=== PATIENT | male | born 1995 | race Caucasian/White ===

== ENCOUNTER 2018-07-08 10:48 | Emergency (ER) | payer OTHER ==
[2018-07-08 12:18] LABS: Basophils % (A) 0 %; Eosinophils # (A) 0.1 k/uL (0-0.7); Eosinophils % (A) 1 %; HCT 43.6 % (39.0-53.0); Lymphocytes # (A) 1.9 k/uL (1.0-4.8); Lymphocytes % (A) 19 %; MCH 29.8 pg (25.0-35.0); MCHC 34.5 g/dL (31.0-37.0); MCV 86.3 fL (80.0-100.0); Mean Platelet Volume 7.1; Monocytes # (A) 0.6 k/uL (0-1.0); Monocytes % (A) 5 %; Neutrophils # (A) 7.5 k/uL (1.3-7.7); Neutrophils % (A) 73 %; Platelet Count 185 k/uL (150-450); RBC 5.05 m/uL (4.30-5.90); WBC 10.4 k/uL (3.8-10.6)
--- NOTE | 2018-07-08 12:26 | XR ---
EXAMINATION TYPE: XR chest 2V DATE OF EXAM: 07/08/2018 COMPARISON: 06/01/2001 INDICATION: Sore throat, rash TECHNIQUE: Frontal and lateral views of the chest are obtained. FINDINGS: The heart size is normal. The pulmonary vasculature is normal. The lungs are clear. Subglottic airway is normal. IMPRESSION: 1. No acute pulmonary process.
[2018-07-08 12:31] LABS: ALT 30 U/L (21-72); AST 26 U/L (17-59); Albumin 3.9 g/dL (3.5-5.0); Alkaline Phosphatase 66 U/L (38-126); Anion Gap 7 mmol/L; Blood Urea Nitrogen 10 mg/dL (9-20); Calcium 9.6 mg/dL (8.4-10.2); Carbon Dioxide 27 mmol/L (22-30); Chloride 105 mmol/L (98-107); Glucose 97 mg/dL (74-99); Potassium 4.4 mmol/L (3.5-5.1); Sodium 139 mmol/L (137-145); Total Bilirubin 0.8 mg/dL (0.2-1.3); Total Protein 6.8 g/dL (6.3-8.2)
--- NOTE | 2018-07-08 12:50 | ED ---
ENT HPI - General Chief complaint: ENT Stated complaint: sorethroat, rash on abd Time Seen by Provider: 07/08/18 11:12 Source: patient, family Mode of arrival: ambulatory Limitations: no limitations - History of Present Illness Initial comments: This is a 22-year-old male fully vaccinated, who denies any past medical history presenting today for chief complaint of rash x 6 days and sore throat x 3 days. Patient states that he began experiencing a rash on his trunk 6 days ago, he states is mostly on the lateral sides. Patient denies any itchiness or pain, involvement of the hands/feet, penile lesions. Patient states is erythematous, and a random pattern. Patient states 3 days later he began experiencing throat pain with swallowing. Patient has a difficulty breathing or difficulty swallowing. Patient states he did notice inflamed tonsil, he states this happens occasionally. Patient also admits to congestion with clear rhinorrhea. As well as an occasional cough. Patient does admit to fever and chills. Patient denies any diarrhea, chest pain, shortness of breath, dyspnea on exertion, urinary changes, nausea, vomiting, dysuria, involvement of the hands or feet, recent travel or any other associated symptoms. Patient appears well upon arrival. Remainder of ROS (-), patient denies any recent shortness of breath, chest pain, back pain, numbness or tingling, dysuria or hematuria, constipation or diarrhea, headaches or visual changes, or any other complaints. VS WNL, elevated BP reading upon arrival will repeat. Afebrile. - Related Data Allergies Allergy/AdvReac Type Severity Reaction Status Date / Time No Known Allergies Allergy Verified 07/08/18 10:57 Review of Systems ROS Statement: Those systems with pertinent positive or pertinent negative responses have been documented in the HPI. ROS Other: All systems not noted in ROS Statement are negative. Past Medical History Past Medical History: No Reported History History of Any Multi-Drug Resistant Organisms: None Reported Past Surgical History: No Surgical Hx Reported Past Psychological History: No Psychological Hx Reported Smoking Status: Never smoker Past Alcohol Use History: None Reported Past Drug Use History: None Reported General Exam - General Exam Comments Initial Comments: General: The patient is awake and alert, in no distress, and does not appear acutely ill. Eye: Pupils are equal, round and reactive to light, extra-ocular movements are intact. No nystagmus. There is normal conjunctiva bilaterally. No signs of icterus. Ears, nose, mouth and throat: There are moist mucous membranes and no oral lesions. Oropharynx is mildly erythematous, there is no tonsillar enlargement exudates or lesions. There is no tonsillar crypts. Uvula is midline. No evidence of peritonsillar abscess. Tympanic membranes are pearly, light and malleus present no erythema bulging retractions. Extraocular canals within normal limits bilaterally. No pain to palpation of the mastoid. No significant sinus tenderness to palpation. Clear rhinorrhea noted on exam. Post nasal drip. Neck: The neck is supple, there is no tenderness or JVD. No anterior cervical adenopathy Cardiovascular: There is a regular rate and rhythm. No murmur, rub or gallop is appreciated. Respiratory: Lungs are clear to auscultation, respirations are non-labored, breath sounds are equal. No wheezes, stridor, rales, or rhonchi. Gastrointestinal: Soft, non-distended, non-tender abdomen without masses or organomegaly noted. There is no rebound or guarding present. No CVA tenderness. Bowel sounds are unremarkable. Musculoskeletal: Normal ROM, no tenderness. Strength 5/5. Sensation intact. Radial pulses equal bilaterally 2+. Neurological: A&O x 3. CN II-XII intact, There are no obvious motor or sensory deficits. Coordination appears grossly intact. Speech is normal. Skin: Skin is warm. Erythematous macules and management distribution of various size mostly less than 1 cm some confluent present on the trunk, no involvement of the neck lower extremities upper extremities face and hands or feet. Blanchable. Psychiatric: Cooperative, appropriate mood & affect, normal judgment. Limitations: no limitations Course Vital Signs 07/08/18 07/08/18 10:55 13:06 Temperature 98.2 F 98.0 F Pulse Rate 86 87 Respiratory 20 18 Rate Blood Pressure 129/91 128/78 O2 Sat by Pulse 99 98 Oximetry Medical Decision Making - Medical Decision Making Well-appearing 22-year-old male. Laboratory findings unremarkable. CXR (-). Rapid strep (-). Heterophile. Patient's physical exam findings concerning for a viral pharyngitis. At this time is unclear if the rash and the pharyngitis symptoms are related. Rash does appear to be consistent with a pityriasis rosea distribution and characteristics area and it does not appear to be a life- threatening or concerning rash. Most likely viral nature. Does not appear to be ALLERGIC reaction or contact dermatitis. At this time do feel patient is stable for discharge with dramatic treatment for sore throat. Patient verbalized understanding of plan. Patient states he'll take ibuprofen in over- the-counter lozenges for symptom treatment. Patient is agreeable discharge, stating he feels comfortable going home. No further questions at this time. Patient was given Versed return parameters for any worsening or change in symptoms. Patient discharged in stable condition appearing well. Pt is to f/u with primary care provider in the next 1-2 days. Pt aware of discharge instructions, denies questions. Case discussed with Dr. Jerez who reviewed all imaging and laboratory studies prior to discharge. - Lab Data Result diagrams: 07/08/18 11:55 07/08/18 11:55 Lab Results 07/08/18 07/08/18 07/08/18 Range/Units 11:45 11:45 11:55 WBC (3.8-10.6) k/uL RBC (4.30-5.90) m/uL Hgb (13.0-17.5) gm/dL Hct (39.0-53.0) % MCV (80.0-100.0) fL MCH (25.0-35.0) pg MCHC (31.0-37.0) g/dL RDW (11.5-15.5) % Plt Count (150-450) k/uL Neutrophils % % Lymphocytes % % Monocytes % % Eosinophils % % Basophils % % Neutrophils # (1.3-7.7) k/uL Lymphocytes # (1.0-4.8) k/uL Monocytes # (0-1.0) k/uL Eosinophils # (0-0.7) k/uL Basophils # (0-0.2) k/uL Sodium (137-145) mmol/L Potassium (3.5-5.1) mmol/L Chloride (98-107) mmol/L Carbon Dioxide (22-30) mmol/L Anion Gap mmol/L BUN (9-20) mg/dL Creatinine (0.66-1.25) mg/dL Est GFR (CKD-EPI)AfAm (>60 ml/min/1.73 sqM) Est GFR (CKD-EPI)NonAf (>60 ml/min/1.73 sqM) Glucose (74-99) mg/dL Calcium (8.4-10.2) mg/dL Total Bilirubin (0.2-1.3) mg/dL AST (17-59) U/L ALT (21-72) U/L Alkaline Phosphatase (38-126) U/L Total Protein (6.3-8.2) g/dL Albumin (3.5-5.0) g/dL Heterophile Antibody Negative (Negative) Influenza Type A RNA Not Detected (Not Detectd) Influenza Type B (PCR) Not Detected (Not Detectd) Group A Strep Rapid Negative (Negative) 07/08/18 07/08/18 Range/Units 11:55 11:55 WBC 10.4 (3.8-10.6) k/uL RBC 5.05 (4.30-5.90) m/uL Hgb 15.0 (13.0-17.5) gm/dL Hct 43.6 (39.0-53.0) % MCV 86.3 (80.0-100.0) fL MCH 29.8 (25.0-35.0) pg MCHC 34.5 (31.0-37.0) g/dL RDW 13.0 (11.5-15.5) % Plt Count 185 (150-450) k/uL Neutrophils % 73 % Lymphocytes % 19 % Monocytes % 5 % Eosinophils % 1 % Basophils % 0 % Neutrophils # 7.5 (1.3-7.7) k/uL Lymphocytes # 1.9 (1.0-4.8) k/uL Monocytes # 0.6 (0-1.0) k/uL Eosinophils # 0.1 (0-0.7) k/uL Basophils # 0.0 (0-0.2) k/uL Sodium 139 (137-145) mmol/L Potassium 4.4 (3.5-5.1) mmol/L Chloride 105 (98-107) mmol/L Carbon Dioxide 27 (22-30) mmol/L Anion Gap 7 mmol/L BUN 10 (9-20) mg/dL Creatinine 1.13 (0.66-1.25) mg/dL Est GFR (CKD-EPI)AfAm >90 (>60 ml/min/1.73 sqM) Est GFR (CKD-EPI)NonAf >90 (>60 ml/min/1.73 sqM) Glucose 97 (74-99) mg/dL Calcium 9.6 (8.4-10.2) mg/dL Total Bilirubin 0.8 (0.2-1.3) mg/dL AST 26 (17-59) U/L ALT 30 (21-72) U/L Alkaline Phosphatase 66 (38-126) U/L Total Protein 6.8 (6.3-8.2) g/dL Albumin 3.9 (3.5-5.0) g/dL Heterophile Antibody (Negative) Influenza Type A RNA (Not Detectd) Influenza Type B (PCR) (Not Detectd) Group A Strep Rapid (Negative) Disposition Clinical Impression: Viral syndrome, Upper respiratory disease Disposition: HOME SELF-CARE Condition: Good Instructions: Pharyngitis (ED), Upper Respiratory Infection (ED) Additional Instructions: Please use medication as discussed. Please follow-up with family doctor in the next 2 days. Please return to emergency room if the symptoms increase or worsen or for any other concerns. Is patient prescribed a controlled substance at d/c from ED?: No Referrals: Constance Briones DO [Primary Care Provider] - 1-2 days Time of Disposition: 12:55
[2018-07-08 13:07] VITALS: BP 128/78; PULSE 87; RESP 18; TEMP 98
== END 2018-07-08 13:06 | disposition home or self-care (01) ==
LOC: EC 10:48
DX: B34.9 Viral infection, unspecified (principal); J39.9 Disease of upper respiratory tract, unspecified
CPT/HCPCS: 36415; 71046; 80053; 85025; 86308; 87081; 87430; 87502; 99283

== ENCOUNTER 2023-05-04 03:36 | Emergency (ER) | payer OTHER ==
[2023-05-04 03:59] VITALS: RESP 18
[2023-05-04] MEDS ORDERED: KETOROLAC 15 MG/ML 1 ML VIAL IM STA (04:13)
--- NOTE | 2023-05-04 04:58 | ED ---
General Adult HPI - General Chief complaint: Upper Respiratory Infection Stated complaint: Difficulty Breathing Time Seen by Provider: 05/04/23 03:39 Source: patient, RN notes reviewed, old records reviewed Mode of arrival: ambulatory Limitations: no limitations - History of Present Illness Initial comments: 27-year-old male who is otherwise healthy presenting for evaluation of sore throat, cough. Patient had developed symptoms approximately 1-2 days prior but then this evening he developed some associated dyspnea. He states he did have a burning sensation in his throat. No central chest pain. No measured fever. - Related Data Allergies Allergy/AdvReac Type Severity Reaction Status Date / Time No Known Allergies Allergy Verified 05/04/23 03:42 Review of Systems ROS Statement: Those systems with pertinent positive or pertinent negative responses have been documented in the HPI. ROS Other: All systems not noted in ROS Statement are negative. Past Medical History Past Medical History: No Reported History History of Any Multi-Drug Resistant Organisms: None Reported Past Surgical History: No Surgical Hx Reported Past Psychological History: No Psychological Hx Reported Smoking Status: Never smoker Past Alcohol Use History: None Reported Past Drug Use History: None Reported General Exam Limitations: no limitations General appearance: alert, in no apparent distress Head exam: Present: atraumatic, normocephalic Eye exam: Present: normal appearance, PERRL ENT exam: Absent: normal oropharynx (There is pharyngeal erythema without tonsillar swelling or exudate, normal uvula) Respiratory exam: Present: normal lung sounds bilaterally. Absent: respiratory distress, wheezes, rales, rhonchi, stridor Cardiovascular Exam: Present: regular rate, normal rhythm GI/Abdominal exam: Present: soft. Absent: distended, tenderness, guarding Neurological exam: Present: alert, oriented X3, CN II-XII intact. Absent: motor sensory deficit Skin exam: Present: warm, dry, intact Course Vital Signs 05/04/23 05/04/23 05/04/23 03:42 03:45 05:02 Temperature 98.5 F 98.2 F Pulse Rate 106 H 64 Respiratory 18 18 18 Rate Blood Pressure 145/92 131/90 O2 Sat by Pulse 96 98 Oximetry - Reevaluation(s) Reevaluation #1: 05/04/23 05:09 Patient feels better, sitting up and after Toradol. 05/04/23 05:09 Patient has stable vitals and normal inhibitor pulse ox and no stridor or wheezing. Medical Decision Making - Medical Decision Making Was pt. sent in by a medical professional or institution ([facility], EQUITY MANAGER, urgent care, hospital, or [place] health care facility...) When possible be specific @ -No Did you speak to anyone other than the patient for history (EMS, parent, family, police, friend...)? What history was obtained from this source @ -No Did you review nursing and triage notes (agree or disagree)? Why? @ -I reviewed and agree with nursing and triage notes Were old charts reviewed (outside hosp., previous admission, EMS record, old EKG, old radiological studies, urgent care reports/EKG's, [place] [facility] facility records)? Report findings @ -No old charts were reviewed Differential Diagnosis (chest pain, altered mental status, abdominal pain women, abdominal pain men, vaginal bleeding, weakness, fever, dyspnea, syncope, headache, dizziness, GI bleed, back pain, seizure, CVA, palpatations, mental health, musculoskeletal)? @ -Pharyngitis, gastric reflux, strep throat, coronavirus, retropharyngeal abscess, peritonsillar abscess EKG interpreted by me (3pts min.). @ -As above X-rays interpreted by me (1pt min.). @ -Chest x-ray negative for focal pneumonia or acute findings. CT interpreted by me (1pt min.). @ -None done U/S interpreted by me (1pt. min.). @ -None done What testing was considered but not performed or refused? (CT, X-rays, U/S, labs)? Why? @ -None What meds were considered but not given or refused? Why? @ -None Did you discuss the management of the patient with other professionals (professionals i.e. [facility], EQUITY MANAGER, lab, RT, psych nurse, social media coordinator, cordage sales representative, teacher, real estate officer, piano case maker)? Give summary @ -No Was smoking cessation discussed for >3mins.? @ -No Was critical care preformed (if so, how long)? @ -No Were there social determinants of health that impacted care today? How? (Homelessness, low income, unemployed, alcoholism, drug addiction, transportation, low edu. Level, literacy, decrease access to med. care, care home, rehab)? @ -No Was there de-escalation of care discussed even if they declined (Discuss DNR or withdrawal of care, Hospice)? DNR status @ -No What co-morbidities impacted this encounter? (DM, HTN, Smoking, COPD, CAD, Cancer, CVA, ARF, Chemo, Hep., AIDS, mental health diagnosis, sleep apnea, morbid obesity)? @ -None Was patient admitted / discharged? Hospital course, mention meds given and route, prescriptions, significant lab abnormalities, going to OR and other pertinent info. @27-year-old male with cough, sore throat, dyspnea. Patient's lungs are clear. There is no resting stridor. There is pharyngeal erythema without tonsillar swelling or exudate. Normal uvula. Vital signs are stable. Viral panel is negative. Chest x-ray is clear. There may be a component of gastric reflux. Patient will trial of omeprazole. He is given strict return parameters he will monitor for fever, worsening dyspnea, any changes she will return to the emergency department. Undiagnosed new problem with uncertain prognosis? @ -No Drug Therapy requiring intensive monitoring for toxicity (Heparin, Nitro, Insulin, Cardizem)? @ -No Were any procedures done? @ -No Diagnosis/symptom? @ -Pharyngitis Acute, or Chronic, or Acute on Chronic? @Acute Uncomplicated (without systemic symptoms) or Complicated (systemic symptoms)? @ -default Side effects of treatment? @ -No Exacerbation, Progression, or Severe Exacerbation? @ -No Poses a threat to life or bodily function? How? (Chest pain, USA, IA, pneumonia, PE, COPD, DKA, ARF, appy, cholecystitis, CVA, Diverticulitis, Homicidal, Suicidal, threat to staff... and all critical care pts) @ -Low-risk at this time - Lab Data Lab Results 05/04/23 Range/Units 03:51 Influenza Type A (PCR) Not Detected (Not Detectd) Influenza Type B (PCR) Not Detected (Not Detectd) RSV (PCR) Not Detected (Not Detectd) SARS-CoV-2 (PCR) Not Detected (Not Detectd) Disposition Clinical Impression: Pharyngitis Disposition: HOME SELF-CARE Condition: Fair Instructions (If sedation given, give patient instructions): Pharyngitis (ED) Additional Instructions: Take omeprazole 20 mg twice daily for 1 week. Please monitor symptoms closely and if symptoms should change or worsen Please return to the emergency department. Please follow up with her primary care physician. Is patient prescribed a controlled substance at d/c from ED?: No Referrals: None,Stated [Primary Care Provider] - 1-2 days Time of Disposition: 05:12
[2023-05-04 05:17] VITALS: BP 131/90; PULSE 64; TEMP 98.2
--- NOTE | 2023-05-04 05:42 | XR ---
EXAM: XR Chest, 2 Views CLINICAL HISTORY: ITS.REASON XR Reason: cough/sob TECHNIQUE: Frontal and lateral views of the chest. COMPARISON: 07/08/2018. FINDINGS: Lungs: Unremarkable. No consolidation. Pleural space: Unremarkable. No pneumothorax. Heart: Unremarkable. No cardiomegaly. Mediastinum: Unremarkable. Bones/joints: Unremarkable. IMPRESSION: No radiographic evidence of acute cardiopulmonary process.
== END 2023-05-04 05:17 | disposition home or self-care (01) ==
LOC: EC 03:36
DX: J02.9 Acute pharyngitis, unspecified (principal); Z20.822 Contact with and (suspected) exposure to COVID-19
CPT/HCPCS: 87636; 71046; 99284; 96372; J1885